=== PATIENT | male | born 1950 | race Caucasian/White ===

== ENCOUNTER 2017-05-05 09:09 | Emergency (ER) | payer MEDICARE, OTHER ==
[~2017-05-05] VITALS: Ht 175.3 cm; Wt 86.4 kg
[~2017-05-05 09:09] MED LIST: ABX; ASPI-1182 PO; LISI-661 PO; METF500T4 PO; PIOG30TA26 PO; TAMS0.4C32 PO
[2017-05-05 09:23] LABS: GLUCOSE,POINT OF CARE 178 MG/DL (70-110)
[2017-05-05] MEDS ORDERED: SULFAMETHOX/TRIMETH DS 800-160 MG/TABLET PO ONE (10:30)
[2017-05-05] MEDS ORDERED: CEPHALEXIN MONOHYDRATE 500 MG CAPSULE PO ONE (10:30)
[2017-05-05 11:17] VITALS: BP 138/80
== END 2017-05-05 11:22 | disposition home or self-care (01) ==
LOC: EMS 09:10
DX: L03.012 Cellulitis of left finger (principal); E11.9 Type 2 diabetes mellitus without complications; I10 Essential (primary) hypertension; Z79.82 Long term (current) use of aspirin; Z79.899 Other long term (current) drug therapy
CPT/HCPCS: 82962; 99283